=== PATIENT | male | born 2000 | race Caucasian/White ===

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

== ENCOUNTER 2022-09-08 20:21 | Emergency (ER) | payer OTHER, MEDICAID, SELFPAY ==
[2022-09-08 20:22] VITALS: BP 127/75; PULSE 103; RESP 16; TEMP 36.6; O2SAT 99; BMI 26.5
--- NOTE | 2022-09-08 20:28 | ED.RN ---
THIS NURSE SPOKE WITH PT'S SGT, AFIA REED. HE REPORTS FROI DOES NEED TO BE COMPLETED BUT PT DOES NOT NEED TO BE TESTED.
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
[2022-09-08] MEDS: Diphth,Pertuss(Acell),Tet Vac 0.5 ML Vial IM (20:42)
[2022-09-08 21:51] LABS: HIV - WCH Non-Reactive (Nonreactive); Hepatitis B Surface Antibody Reactive; Hepatitis B Surface Antigen Non-Reactive (Nonreactive); Hepatitis C Antibody Non-Reactive (Nonreactive)
== END 2022-09-08 21:13 | disposition home or self-care (01) ==
PROVIDERS: Emergency Provider Emergency Medicine; Visit Provider Emergency Medicine
DX: S41.151A Open bite of right upper arm, initial encounter (principal); Y04.1XXA Assault by human bite, initial encounter
CPT/HCPCS: 86703; 86706; 86803; 87340; 90715; 99283